=== PATIENT | male | born 1970 | race American Indian/Alaskan Native ===

== ENCOUNTER 2021-07-26 09:23 | Emergency (ER) | payer OTHER ==
--- NOTE | 2021-07-26 09:36 | Event Note ---
ED Screening Note Date of service: 07/26/21 Time: 09:35 ED Screening Note: 51-year-old -[place] male with a history of hypertension presents to the emergency room for neuro deficits. Patient states that last night his eye started to deviate. He denies any injury. This initial assessment/diagnostic orders/clinical plan/treatment(s) is/are subject to change based on patients health status, clinical progression and re- assessment by fellow clinical providers in the ED. Further treatment and workup at subsequent clinical providers discretion. Patient/guardian urged not to elope from the ED as their condition may be serious if not clinically assessed and managed. Initial orders include:
--- NOTE | 2021-07-26 09:51 | Emergency Department Report ---
ED Neuro Deficit HPI - General Chief Complaint: Neuro Symptoms/Deficit Stated Complaint: NOT FEELING GOOD Time Seen by Provider: 07/26/21 09:42 Source: patient Mode of arrival: Ambulatory Limitations: No Limitations - History of Present Illness Initial Comments: Patient presents secondary to a problem with his eyes. He states that he woke up last night because he thought somebody knocked on the door. His blood pressure was elevated. He noticed that his left eye was not moving correctly. He had double vision associated with this. Patient states that he came in this morning because of this. He has no headache. There has been no history of tra chandra. He has no fevers or chills per there is no cough congestion. Patient denies numbness or tingling in the arms or legs. He has not noticed weakness in the arms or legs but has never had symptoms like this before. His blood pressure is better controlled than it was last night. - Related Data Home Medications: Previous Rx's Medication Instructions Recorded Last Taken Type amLODIPine 10 mg PO DAILY #30 tablet 11/21/16 Unknown Rx labetaloL [Labetalol 100mg TAB] 100 mg PO BID #30 tablet 11/21/16 Unknown Rx lisinopriL [Zestril TAB] 20 mg PO QDAY #30 tablet 11/21/16 Unknown Rx Allergies/Adverse Reactions: Allergies Allergy/AdvReac Type Severity Reaction Status Date / Time No Known Allergies Allergy Unverified 11/20/16 16:54 ED Review of Systems ROS: Stated complaint: NOT FEELING GOOD Other details as noted in HPI Comment: All other systems reviewed and negative Constitutional: denies: fever Eyes: as per HPI ENT: denies: throat pain Respiratory: denies: cough Cardiovascular: denies: chest pain Endocrine: denies: unexplained weight loss Gastrointestinal: denies: abdominal pain Genitourinary: denies: dysuria Musculoskeletal: denies: back pain Skin: denies: rash Neurological: denies: headache Hematological/Lymphatic: denies: easy bruising ED Past Medical Hx - Past Medical History Previous Medical History?: Yes Hx Hypertension: Yes Hx Congestive Heart Failure: No Hx Diabetes: No Hx Asthma: No Hx COPD: No - Surgical History Past Surgical History?: No - Family History Family history: hypertension - Social History Smoking Status: Never Smoker Substance Use Type: Alcohol - Medications Home Medications: Home Medications Medication Instructions Recorded Confirmed Last Taken Type amLODIPine 10 mg PO DAILY #30 tablet 11/21/16 Unknown Rx labetaloL [Labetalol 100mg TAB] 100 mg PO BID #30 tablet 11/21/16 Unknown Rx lisinopriL [Zestril TAB] 20 mg PO QDAY #30 tablet 11/21/16 Unknown Rx ED Neuro Physical Exam - General Limitations: No Limitations, Other (Pulse ox noted and normal) General appearance: alert, in no apparent distress Suspected Stroke: No - Head Head exam: Present: atraumatic, normocephalic, normal inspection - Eye Eye exam: Present: normal appearance, PERRL, other (Patient has no movement of the left eye medially.). Absent: EOMI, scleral icterus - ENT ENT exam: Present: normal orophraynx, normal external ear exam - Neck Neck exam: Present: normal inspection. Absent: meningismus - Respiratory Respiratory exam: Present: normal lung sounds bilaterally. Absent: respiratory distress - Cardiovascular Cardiovascular Exam: Present: regular rate, normal rhythm - GI/Abdominal GI/Abdominal exam: Present: soft. Absent: tenderness - Extremities Exam Extremities exam: Present: normal capillary refill. Absent: pedal edema - Back Exam Back exam: Absent: CVA tenderness (R), CVA tenderness (L) - Neurological Exam Neurological exam: Present: alert, oriented X3, normal gait. Absent: motor sensory deficit - NIHSS Assessment Interval: Baseline 1a. Level of Consciousness: alert/keenly responsive 1b. LOC Questions: answers both correctly 1c. LOC Commands: performs tasks correctly 2. Best Gaze: partial gaze palsy 3. Visual: no visual loss 4. Facial Palsy: normal symmetrical movement 5b. Motor Arm Right: no drift 5a. Motor Arm Left: no drift 6a. Motor Leg Left: no drift 6b. Motor Leg Right: no drift 7. Limb Ataxia: absent 8. Sensory: normal 9. Best Language: no aphasia 10. Dysarthria: normal 11. Extinction/Inattention: no abnormality Total Score: 1 Stroke Severity: Minor Stroke - Psychiatric Psychiatric exam: Present: normal affect, normal mood - Skin Skin exam: Present: warm, dry ED Course Vital Signs 07/26/21 07/26/21 07/26/21 09:33 09:35 10:31 Temperature 97.6 F 97.9 F Pulse Rate 83 83 74 Respiratory 17 18 17 Rate Blood Pressure 152/94 152/94 149/84 O2 Sat by Pulse 98 96 95 Oximetry 07/26/21 07/26/21 07/26/21 11:01 11:31 12:01 Temperature Pulse Rate 71 73 73 Respiratory 18 18 15 Rate Blood Pressure 137/80 138/86 141/87 O2 Sat by Pulse 94 95 95 Oximetry - Reevaluation(s) Reevaluation #1: 07/26/21 09:[address] have been ordered. Old records noted. Reevaluation #2: 07/26/21 11:[address] were noted. Case was discussed with the evidence technician who will come in to do an urgent MRI looking for tumor or stroke causing his cranial nerve palsy. If the MRI is positive, he will require admission. If the MR is negative, he would likely be able to go home. - Lab Data Result diagrams: 07/26/21 10:03 07/26/21 10:03 Lab Results 07/26/21 07/26/21 07/26/21 Range/Units 10:03 10:03 10:03 WBC 8.0 (4.5-11.0) K/mm3 RBC 5.34 H (3.65-5.03) M/mm3 Hgb 16.6 H (11.8-15.2) gm/dl Hct 46.3 H (35.5-45.6) % MCV 87 (84-94) fl MCH 31 (28-32) pg MCHC 36 H (32-34) % RDW 13.3 (13.2-15.2) % Plt Count 146 (140-440) K/mm3 Lymph % (Auto) 25.1 (13.4-35.0) % [place] % (Auto) 8.2 H (0.0-7.3) % Eos % (Auto) 1.4 (0.0-4.3) % Baso % (Auto) 1.0 (0.0-1.8) % Lymph # (Auto) 2.0 (1.2-5.4) K/mm3 [place] # (Auto) 0.7 (0.0-0.8) K/mm3 Eos # (Auto) 0.1 (0.0-0.4) K/mm3 Baso # (Auto) 0.1 (0.0-0.1) K/mm3 Seg Neutrophils % 64.3 (40.0-70.0) % Seg Neutrophils # 5.1 (1.8-7.7) K/mm3 PT 13.9 (12.2-14.9) Sec. INR 0.97 (0.87-1.13) APTT 26.7 (24.2-36.6) Sec. Sodium (137-145) mmol/L Potassium (3.6-5.0) mmol/L Chloride (98-107) mmol/L Carbon Dioxide (22-30) mmol/L Anion Gap mmol/L BUN (9-20) mg/dL Creatinine (0.8-1.3) mg/dL Estimated GFR ml/min BUN/Creatinine Ratio % Glucose (75-100) mg/dL Calcium (8.4-10.2) mg/dL Total Bilirubin (0.1-1.2) mg/dL AST (5-40) units/L ALT (7-56) units/L Alkaline Phosphatase (35-129) units/L Troponin T < 0.010 (0.00-0.029) ng/mL Total Protein (6.3-8.2) g/dL Albumin (3.9-5) g/dL Albumin/Globulin Ratio % 02/26/22 Range/Units 10:03 WBC (4.5-11.0) K/mm3 RBC (3.65-5.03) M/mm3 Hgb (11.8-15.2) gm/dl Hct (35.5-45.6) % MCV (84-94) fl MCH (28-32) pg MCHC (32-34) % RDW (13.2-15.2) % Plt Count (140-440) K/mm3 Lymph % (Auto) (13.4-35.0) % [place] % (Auto) (0.0-7.3) % Eos % (Auto) (0.0-4.3) % Baso % (Auto) (0.0-1.8) % Lymph # (Auto) (1.2-5.4) K/mm3 [place] # (Auto) (0.0-0.8) K/mm3 Eos # (Auto) (0.0-0.4) K/mm3 Baso # (Auto) (0.0-0.1) K/mm3 Seg Neutrophils % (40.0-70.0) % Seg Neutrophils # (1.8-7.7) K/mm3 PT (12.2-14.9) Sec. INR (0.87-1.13) APTT (24.2-36.6) Sec. Sodium 139 (137-145) mmol/L Potassium 4.2 (3.6-5.0) mmol/L Chloride 99.0 (98-107) mmol/L Carbon Dioxide 24 (22-30) mmol/L Anion Gap 20 mmol/L BUN 16 (9-20) mg/dL Creatinine 1.3 (0.8-1.3) mg/dL Estimated GFR > 60 ml/min BUN/Creatinine Ratio 12 % Glucose 105 H (75-100) mg/dL Calcium 10.0 (8.4-10.2) mg/dL Total Bilirubin 0.70 (0.1-1.2) mg/dL AST 35 (5-40) units/L ALT 42 (7-56) units/L Alkaline Phosphatase 67 (35-129) units/L Troponin T (0.00-0.029) ng/mL Total Protein 7.9 (6.3-8.2) g/dL Albumin 4.9 (3.9-5) g/dL Albumin/Globulin Ratio 1.6 % - EKG Data EKG shows normal: sinus rhythm When compared to previous EKG there are: no significant change 07/26/21 11:04 1024-EKG shows normal sinus rhythm at 76. Intervals are normal including a QRS of 104 and a QT corrected of 482. Patient has T wave inversions in 1 and aVL as well as V4 through V6 which are old when compared to an EKG from 2017. Patient has no ST elevation to suggest STEMI. There is no ST depression suggestive of ischemia. - Radiology Data Radiology results: report reviewed - Medical Decision Making Patient presented with an isolated cranial nerve palsy 3 on the left. Etiology for this is not known. This could certainly be stroke and he may benefit from admission. This could be tumor or mass. This could be aneurysmal, although he has no headache. MRI is currently pending. Care is been signed out pending MR Critical Care Time: No Critical care attestation.: If time is entered above; I have spent that time in minutes in the direct care of this critically ill patient, excluding procedure time. ED Disposition Clinical Impression: Cranial nerve III palsy, partial, left Disposition: 30 STILL A PATIENT Is pt being admited?: No Condition: Stable Additional Instructions: Drink plenty water. Return for problems. Take an aspirin every day. Follow-up with the neurologist as referred. Return for any problems or concerns. Referrals: PRIMARY CAREMD [Primary Care Provider] - 3-5 Days JOVITA PETERSON MD [Staff Physician] - 3-5 Days YOGESH SCHUMACHER MD [Staff Physician] - 3-5 Days
--- NOTE | 2021-07-26 10:11 | Cat Scan Report ---
CT HEAD WITHOUT CONTRAST INDICATION / CLINICAL INFORMATION: Stroke symptoms. TECHNIQUE: All CT scans at this location are performed using CT dose reduction for ALARA by means of automated exposure control. COMPARISON: 11/20/2016 FINDINGS: HEMORRHAGE: None. EXTRA-AXIAL SPACES: Normal in size and morphology for the patient's age. VENTRICULAR SYSTEM: Normal in size and morphology for the patient's age. CEREBRAL PARENCHYMA: There are periventricular hypodensities consistent with microvascular ischemic c hange. No acute territorial infarct. MIDLINE SHIFT / HERNIATION: None. CEREBELLUM / BRAINSTEM: No significant abnormality. ORBITS: Normal as visualized SOFT TISSUES: No significant abnormality. SKULL: No significant abnormality. PARANASAL SINUSES / MASTOID AIR CELLS: Normal as visualized ADDITIONAL FINDINGS: None. IMPRESSION: 1. No acute intracranial abnormality. 2. Chronic microvascular ischemic change in periventricular white matter. Signer Name: Marcio Eckert DO Signed: 07/26/2021 10:07 AM Workstation Name: [id number]
[2021-07-26 10:41] LABS: Basophils # (Auto) 0.1 K/mm3 (0.0-0.1); Eosinophils # (Auto) 0.1 K/mm3 (0.0-0.4); Eosinophils % (Auto) 1.4 % (0.0-4.3); Lymphocytes % (Auto) 25.1 % (13.4-35.0); Mean Corpuscular HGB Conc 36 % (32-34); Mean Corpuscular Volume 87 fl (84-94); Monocytes # (Auto) 0.7 K/mm3 (0.0-0.8); Monocytes % (Auto) 8.2 % (0.0-7.3); Platelet Count 146 K/mm3 (140-440); Red Blood Count 5.34 M/mm3 (3.65-5.03); Red Cell Distribution Width 13.3 % (13.2-15.2)
[2021-07-26 10:50] LABS: INR 0.97 (0.87-1.13)
[2021-07-26 10:51] LABS: Partial Thromboplastin Time 26.7 Sec. (24.2-36.6)
[2021-07-26 11:03] LABS: Hematocrit 46.3 % (35.5-45.6); Hemoglobin 16.6 gm/dl (11.8-15.2)
[2021-07-26 11:08] LABS: Alanine Aminotransferase 42 units/L (7-56); Albumin 4.9 g/dL (3.9-5); BUN/Creatinine Ratio 12; Blood Urea Nitrogen 16 mg/dL (9-20); Hemolysis Index 11
--- NOTE | 2021-07-26 14:54 | Magnetic Resonance Report ---
NONENHANCED AND CONTRAST ENHANCED MR SCAN OF THE BRAIN: INDICATION / CLINICAL INFORMATION: CN3 palsy left, eval for cva. TECHNIQUE: Multiplanar, multisequence MR images of the brain obtained. COMPARISON: CT scan of the head obtained 4 hours earlier FINDINGS: BRAIN / INTRACRANIAL CONTENTS: No acute ischemia, acute hemorrhage, mass effect, midline shift, or hy drocephalus. Focal chronic ischemia in the left inferior cerebellar chronic white matter changes in both cerebral hemispheres in the centrum semiovale extending towards the guerra radiata and left exte rnal capsule due to chronic small vessel disease. No enhancing parenchymal or meningeal lesions. 3rd cranial nerve: No focal lesion in the midbrain, interpeduncular cistern, cavernous sinuses or sup erior orbital fissure. In these images, no aneurysm seen at the origin of left posterior communicatin g artery. 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 VASCULAR FLOW-VOIDS: No significant abnormality. ORBITS: No significant abnormality of visualized orbits. SINUSES / MASTOIDS: No significant abnormality of visualized sinuses and mastoid air cells. ADDITIONAL FINDINGS: Hypertrophy of muscles of mastication IMPRESSION: No acute focal parenchymal lesion in the brain No focal lesion along the 3rd cranial nerve No aneurysm at the origin of left posterior communicating artery If there is pupillary involvement from the 3rd cranial nerve paralysis, please obtain CTA of the head Signer Name: Vickie Garcia MD Signed: 07/26/2021 2:50 PM Workstation Name: [id number]
[2021-07-26 15:00] VITALS: BP 146/87
--- NOTE | 2021-07-27 09:37 | Electrocardiograph Report ---
[facility] Test Date: 2021-07-26 Test Time: 10:24:45 Pat Name: JOHNNY BARDALES Department: Room: Gender: M Program [employer] Group Work: RACHEL : 1970 Requested By: ELKE MORAN Order Number: [id number] Reading MD: Mayra Hatfield Measurements Intervals [place]kinson Rate: 76 P: 60 NH: 185 QRS: -32 QRSD: 104 T: 165 QT: 429 QTc: 482 Interpretive Statements Sinus rhythm Probable left atrial enlargement LVH with secondary repolarization abnormality No previous ECG available for comparison Electronically Signed On 07-27-2021 9:37:05 EST by Mayra Hatfield
== END 2021-07-26 15:00 | disposition home or self-care (01) ==
LOC: ED 09:23
DX: H49.02 Third [oculomotor] nerve palsy, left eye (principal); I10 Essential (primary) hypertension; F10.20 Alcohol dependence, uncomplicated
CPT/HCPCS: 36415; 70450; 70553; 80053; 84484; 85025; 85610; 85730; 93005; 93010; 99284; A9575